=== PATIENT | male | born 2000 | race African-American/Black ===

== ENCOUNTER 2022-04-20 13:00 | Emergency (ER) | payer MEDICAID ==
[2022-04-20] MEDS ORDERED: Ibuprofen 800 MG TAB ONE (13:21)
== END 2022-04-20 13:24 | disposition home or self-care (01) ==
LOC: MADERS 13:00
DX: S43.401A Unspecified sprain of right shoulder joint, initial encounter (principal); X50.0XXA Overexertion from strenuous movement or load, initial encounter
CPT/HCPCS: 99283